=== PATIENT | male | born 1965 | race Caucasian/White ===

== ENCOUNTER 2020-03-05 09:52 | Inpatient (IN) | payer BC, SELFPAY ==
[~2020-03-05] VITALS: Ht 185.4 cm; Wt 99.8 kg
[2020-03-05 09:54] VITALS: Ht 185.4 cm; Wt 99.8 kg
[2020-03-05 11:55] LABS: CREATININE SERUM 1.2 mg/dL (0.7-1.3); GFR1 > 60 mL/min; POTASSIUM SERUM 4.3 mmol/L (3.5-5.1); SODIUM SERUM 129 mmol/L (136-145)
[2020-03-05 12:51] LABS: CALCIUM 9.5 mg/dL (8.5-10.1); CARBON DIOXIDE 28.4 mmol/L (21-32); CHLORIDE SERUM 91 mmol/L (98-107); GLUCOSE SERUM 200 mg/dL (74-106)
[2020-03-05 12:56] LABS: ALKALINE PHOSPHATASE 115 U/L (46-116); ALT/SGPT 131 U/L (16-63); AST/SGOT 114 U/L (15-37); BILIRUBIN TOTAL 0.87 mg/dL (0.20-1.00)
[2020-03-05 13:17] LABS: ALBUMIN 2.5 g/dL (3.4-5.0); LACTIC DEHYDROGENASE (LDH) 833 U/L (100-190); TOTAL PROTEIN, SERUM 8.5 g/dL (6.4-8.2)
[2020-03-05 13:18] LABS: C REACTIVE PROTEIN 41.4 mg/dL (<=0.9)
[2020-03-05 13:30] LABS: RED CELL DISTRIBUTION WIDTH 14.1 % (12.1-16.2)
[2020-03-05 15:33] LABS: PLATELET COUNT 25 x10^3mcL (152-348)
[2020-03-05 15:34] LABS: SEGMENTED NEUTROPHILS 4 % (37-75)
[2020-03-05 15:37] LABS: MONOCYTE 26 % (0-7); rbc morphology (normal/abnorm) NORMAL (NORMAL)
[2020-03-05 16:24] LABS: UA SPECIFIC GRAVITY 1.015 (1.005-1.035); microscopic required? YES; urine erythrocyte TRACE (NEGATIVE)
[2020-03-05] MEDS ORDERED: ATORVASTATIN CA40 M1 PO (17:27)
[2020-03-05] MEDS ORDERED: ZESTRIL20 MG PO (17:28)
[2020-03-06 08:25] VITALS: BP 139/93
[2020-03-06 08:53] VITALS: BP 167/62
[2020-03-06 09:57] LABS: RED CELL DISTRIBUTION WIDTH 14.2 % (12.1-16.2)
[2020-03-06 11:12] LABS: PLATELET COUNT 22 x10^3mcL (152-348)
[2020-03-06 12:43] VITALS: BP 140/88
[2020-03-06 13:04] LABS: ALKALINE PHOSPHATASE 108 U/L (46-116); ALT/SGPT 146 U/L (16-63); AST/SGOT 79 U/L (15-37); BILIRUBIN TOTAL 0.4 mg/dL (0.20-1.00); CALCIUM 8.4 mg/dL (8.5-10.1); CARBON DIOXIDE 21.8 mmol/L (21-32); CHLORIDE SERUM 104 mmol/L (98-107); GFR1 > 60 mL/min; GLUCOSE SERUM 163 mg/dL (74-106); MAGNESIUM 2.5 mg/dL (1.8-2.4); SODIUM SERUM 143 mmol/L (136-145); TOTAL PROTEIN, SERUM 6.3 g/dL (6.4-8.2)
[2020-03-06 13:05] LABS: ALBUMIN 2.2 g/dL (3.4-5.0)
[2020-03-06 14:40] LABS: MONOCYTE 5 % (0-7); SEGMENTED NEUTROPHILS 28 % (37-75); rbc morphology (normal/abnorm) ABNORMAL (NORMAL)
[2020-03-06 17:46] VITALS: BP 126/75
[2020-03-06 21:36] VITALS: BP 121/72
[2020-03-07 06:16] VITALS: BP 115/67
[2020-03-07 08:52] LABS: ALKALINE PHOSPHATASE 94 U/L (46-116); ALT/SGPT 138 U/L (16-63); AST/SGOT 65 U/L (15-37); BILIRUBIN TOTAL 0.45 mg/dL (0.20-1.00); CALCIUM 8.7 mg/dL (8.5-10.1); CARBON DIOXIDE 27.1 mmol/L (21-32); CHLORIDE SERUM 102 mmol/L (98-107); GFR1 > 60 mL/min; GLUCOSE SERUM 103 mg/dL (74-106); MAGNESIUM 2.5 mg/dL (1.8-2.4); POTASSIUM SERUM 4.5 mmol/L (3.5-5.1); SODIUM SERUM 139 mmol/L (136-145); TOTAL PROTEIN, SERUM 6.9 g/dL (6.4-8.2)
[2020-03-07 08:57] LABS: RED CELL DISTRIBUTION WIDTH 13.8 % (12.1-16.2)
[2020-03-07 09:22] LABS: PLATELET COUNT 24 x10^3mcL (152-348)
[2020-03-07 09:40] VITALS: BP 119/69
[2020-03-07 13:17] VITALS: BP 125/67
[2020-03-07 16:03] LABS: BAND NEUTROPHIL 0 % (0-10); BASOPHIL 0 % (0-2); MONOCYTE 5 % (0-7); SEGMENTED NEUTROPHILS 37 % (37-75); rbc morphology (normal/abnorm) ABNORMAL (NORMAL)
[2020-03-07 16:42] VITALS: BP 118/64
[2020-03-07 19:50] VITALS: BP 121/82
[2020-03-08 05:27] VITALS: BP 122/63
[2020-03-08 09:03] VITALS: BP 124/73
[2020-03-08 12:21] VITALS: BP 122/70
[2020-03-08 13:14] LABS: ALKALINE PHOSPHATASE 97 U/L (46-116); ALT/SGPT 130 U/L (16-63); AST/SGOT 46 U/L (15-37); BILIRUBIN TOTAL 0.47 mg/dL (0.20-1.00); CARBON DIOXIDE 23.7 mmol/L (21-32); CHLORIDE SERUM 100 mmol/L (98-107); GFR1 > 60 mL/min; GLUCOSE SERUM 134 mg/dL (74-106); MAGNESIUM 2.4 mg/dL (1.8-2.4); POTASSIUM SERUM 4.2 mmol/L (3.5-5.1); SODIUM SERUM 135 mmol/L (136-145)
[2020-03-08 13:18] LABS: BILIRUBIN DIRECT 0.16 mg/dL (0.0-0.2); BILIRUBIN TOTAL 0.47 mg/dL (0.20-1.00)
[2020-03-08 13:19] LABS: RED CELL DISTRIBUTION WIDTH 13.6 % (12.1-16.2)
[2020-03-08 13:21] LABS: ALBUMIN 2.1 g/dL (3.4-5.0); TOTAL PROTEIN, SERUM 6.1 g/dL (6.4-8.2)
[2020-03-08 14:14] LABS: BAND NEUTROPHIL 5 % (0-10); MONOCYTE 6 % (0-7); SEGMENTED NEUTROPHILS 19 % (37-75)
[2020-03-08 14:15] LABS: rbc morphology (normal/abnorm) ABNORMAL (NORMAL)
[2020-03-08 14:16] LABS: PLATELET MORPHOLOGY LARGE PLATELET SEEN
[2020-03-08 14:17] LABS: PLATELET COUNT 25 x10^3mcL (152-348)
[2020-03-08 16:52] VITALS: BP 118/76
[2020-03-08 21:05] VITALS: BP 120/77
[2020-03-09 06:04] VITALS: BP 128/77
[2020-03-09 07:43] LABS: ALKALINE PHOSPHATASE 94 U/L (46-116); ALT/SGPT 112 U/L (16-63); AST/SGOT 40 U/L (15-37); BILIRUBIN TOTAL 0.6 mg/dL (0.20-1.00); CARBON DIOXIDE 27.3 mmol/L (21-32); CHLORIDE SERUM 97 mmol/L (98-107); CREATININE SERUM 1.1 mg/dL (0.7-1.3); GFR1 > 60 mL/min; GLUCOSE SERUM 106 mg/dL (74-106); MAGNESIUM 2.2 mg/dL (1.8-2.4); POTASSIUM SERUM 3.9 mmol/L (3.5-5.1); SODIUM SERUM 133 mmol/L (136-145); TOTAL PROTEIN, SERUM 7.1 g/dL (6.4-8.2)
[2020-03-09 07:44] LABS: ALBUMIN 2.3 g/dL (3.4-5.0); RED CELL DISTRIBUTION WIDTH 13.6 % (12.1-16.2)
[2020-03-09 07:58] LABS: BILIRUBIN DIRECT 0.2 mg/dL (0.0-0.2); BILIRUBIN TOTAL 0.6 mg/dL (0.20-1.00); TOTAL PROTEIN, SERUM 7.1 g/dL (6.4-8.2)
[2020-03-09 08:12] LABS: PLATELET COUNT 32 x10^3mcL (152-348)
[2020-03-09 08:20] LABS: ALBUMIN 2.3 g/dL (3.4-5.0)
[2020-03-09 09:27] VITALS: BP 138/58
[2020-03-09 13:17] VITALS: BP 120/72
[2020-03-09 13:24] LABS: MONOCYTE 2 % (0-7); SEGMENTED NEUTROPHILS 33 % (37-75)
[2020-03-09 13:27] LABS: rbc morphology (normal/abnorm) NORMAL (NORMAL)
[2020-03-09 13:29] LABS: ATYPICAL LYMPH 0 %
[2020-03-09 16:49] VITALS: BP 115/67
[2020-03-09 21:44] VITALS: BP 133/87
[2020-03-10 05:49] VITALS: BP 125/68
[2020-03-10 08:26] LABS: RED CELL DISTRIBUTION WIDTH 13.5 % (12.1-16.2)
[2020-03-10 08:51] VITALS: BP 125/72
[2020-03-10 09:27] LABS: ALKALINE PHOSPHATASE 93 U/L (46-116); ALT/SGPT 94 U/L (16-63); AST/SGOT 20 U/L (15-37); BILIRUBIN TOTAL 0.69 mg/dL (0.20-1.00); CARBON DIOXIDE 25.5 mmol/L (21-32); CHLORIDE SERUM 98 mmol/L (98-107); CREATININE SERUM 1.1 mg/dL (0.7-1.3); GFR1 > 60 mL/min; GLUCOSE SERUM 105 mg/dL (74-106); MAGNESIUM 2.3 mg/dL (1.8-2.4); POTASSIUM SERUM 4.3 mmol/L (3.5-5.1); SODIUM SERUM 133 mmol/L (136-145); TOTAL PROTEIN, SERUM 7.3 g/dL (6.4-8.2)
[2020-03-10 09:28] LABS: ALBUMIN 2.3 g/dL (3.4-5.0)
[2020-03-10 10:17] LABS: PLATELET COUNT 36 x10^3mcL (152-348)
[2020-03-10 12:29] VITALS: BP 141/73
[2020-03-10 12:54] LABS: BAND NEUTROPHIL 0 % (0-10); BASOPHIL 0 % (0-2); MONOCYTE 2 % (0-7); SEGMENTED NEUTROPHILS 21 % (37-75)
[2020-03-10 12:56] LABS: rbc morphology (normal/abnorm) NORMAL (NORMAL)
[2020-03-10 16:13] VITALS: BP 119/77
[2020-03-10 20:57] VITALS: BP 124/71
[2020-03-11] MEDS ORDERED: DECADRON6 MG PO (01:23)
[2020-03-11 05:45] VITALS: BP 110/74
[2020-03-11 08:12] LABS: BILIRUBIN TOTAL 0.69 mg/dL (0.20-1.00); TOTAL PROTEIN, SERUM 7.2 g/dL (6.4-8.2)
[2020-03-11 08:37] LABS: ALBUMIN 2.3 g/dL (3.4-5.0)
[2020-03-11 09:20] VITALS: BP 114/65
[2020-03-11 09:34] LABS: BILIRUBIN DIRECT 0.17 mg/dL (0.0-0.2)
[2020-03-11 11:49] VITALS: BP 142/80
[2020-03-11 13:49] LABS: RED CELL DISTRIBUTION WIDTH 13.6 % (12.1-16.2)
[2020-03-11 16:22] VITALS: BP 123/57
[2020-03-11 18:27] LABS: CALCIUM 8.1 mg/dL (8.5-10.1); CARBON DIOXIDE 15.7 mmol/L (21-32); CHLORIDE SERUM 79 mmol/L (98-107); CREATININE SERUM 0.9 mg/dL (0.7-1.3); GFR1 > 60 mL/min; GLUCOSE SERUM 81 mg/dL (74-106); POTASSIUM SERUM 3.1 mmol/L (3.5-5.1)
[2020-03-11 18:29] LABS: SODIUM SERUM 111 mmol/L (136-145)
[2020-03-11 21:53] VITALS: BP 135/75
[2020-03-11 21:56] LABS: CALCIUM 8.9 mg/dL (8.5-10.1); CARBON DIOXIDE 21.3 mmol/L (21-32); CHLORIDE SERUM 98 mmol/L (98-107); CREATININE SERUM 1.2 mg/dL (0.7-1.3); GFR1 > 60 mL/min; GLUCOSE SERUM 148 mg/dL (74-106); SODIUM SERUM 134 mmol/L (136-145)
[2020-03-12 05:55] LABS: MONOCYTE 13 % (0-7); SEGMENTED NEUTROPHILS 1 % (37-75)
[2020-03-12 05:56] LABS: rbc morphology (normal/abnorm) NORMAL (NORMAL)
[2020-03-12 06:09] VITALS: BP 119/64
[2020-03-12 06:46] LABS: PLATELET COUNT 39 x10^3mcL (152-348)
[2020-03-12 08:53] VITALS: BP 117/60
[2020-03-12 11:24] VITALS: BP 124/73
[2020-03-12 16:30] VITALS: BP 113/72
[2020-03-12 16:51] VITALS: BP 113/72
== END 2020-03-12 17:45 | disposition home or self-care (01) | DRG 177 ==
LOC: ED 09:52 → DU 16:08 → EDBEDREQ 16:09 → DU 03-06 08:00
PROVIDERS: Emergency Medicine; Internal Medicine Infectious Disease; ADMIT Hospitalist; ATTEND Internal Medicine
PROC: XW033E5 Introduction of Remdesivir Anti-infective into Peripheral Vein, Percutaneous Approach, New Technology Group 5 (ICD-10-PCS; principal; 2020-03-07)
PROC: XW13325 Transfusion of Convalescent Plasma (Nonautologous) into Peripheral Vein, Percutaneous Approach, New Technology Group 5 (ICD-10-PCS; 2020-03-08)
DX: U07.1 COVID-19 (principal); J96.01 Acute respiratory failure with hypoxia; J12.89 Other viral pneumonia; D61.818 Other pancytopenia; E87.2 Acidosis; I10 Essential (primary) hypertension; E78.00 Pure hypercholesterolemia, unspecified; E78.5 Hyperlipidemia, unspecified
CPT/HCPCS: 36600; 82962; 83880; 85378; 87804; G0378; J0456; J0692; J0696; J1100; J1442; J7030; J7050; J7060; U0003

== ENCOUNTER 2020-04-23 20:56 | Inpatient (IN) | payer BC, SELFPAY ==
[~2020-04-23] VITALS: Ht 185.4 cm; Wt 90.7 kg
[~2020-04-23 20:56] MED LIST: ATORVASTATIN CA40 M1 PO; DECADRON6 MG PO; ZESTRIL20 MG PO
[2020-04-23 21:05] VITALS: Ht 185.4 cm; Wt 90.7 kg
--- NOTE | 2020-04-23 21:13 | NUR ---
PT BIB [facility], REPORT RECEIVED FROM ROTARY SWAGING MACHINE OPERATOR MELANI. MEDIC REPORTS THAT PT HAD COVID IN JANUARY AND HOSPITALIZED AT [facility] [place] FOR COVID. MEDIC REPORTS THAT PT WENT TO URGENT CARE YESTERDAY FOR SOB AND THEY ADMINISTERED A STEROID SHOT FOR PT. PT GOT PROGRESSIVELY WORSE AND PRESENTS TO THE ED FOR THIS REASON. MEDIC REPORTS PT HX HTN, HIGH CHOLESTEROL, 12 LEAD NSR, AND PT HAS 2L O2 AT HOME PRN AND AT NIGHT. PT IN GURNEY SHORT OF BREATH, CAME TO ED WITH NC AND PUT ON NRB 15L ON ARRIVAL. PT SATURATION 100%--TAKEN OFF NRB. PT AAOX4, SPEAKING IN FULL CLEAR SENTENCES BUT IS IN OBVIOUS DISTRESS/SOB. RT AT BEDSIDE TO DRAW ABG. PT GURNEY IN LOWEST POSITION AND SIDE RAILSX2 FOR SAFETY
--- NOTE | 2020-04-23 21:19 | NUR ---
XRAY AND LAB AT BEDSIDE
--- NOTE | 2020-04-23 21:42 | NUR ---
PT IN [facility] IN OBVIOUS DISTRESS, PALE, DIAPHORETIC AND ASKING FOR WATER--OK'D BY
--- NOTE | 2020-04-23 21:47 | NUR ---
RT AT BEDSIDE FOR ABG DRAW
[2020-04-23 22:04] LABS: ALKALINE PHOSPHATASE 98 U/L (46-116); ALT/SGPT 32 U/L (16-63); AST/SGOT 51 U/L (15-37); BILIRUBIN TOTAL 0.7 mg/dL (0.20-1.00); CALCIUM 8.9 mg/dL (8.5-10.1); CARBON DIOXIDE 12.5 mmol/L (21-32); CHLORIDE SERUM 99 mmol/L (98-107); GLUCOSE SERUM 171 mg/dL (74-106); SODIUM SERUM 138 mmol/L (136-145); TOTAL PROTEIN, SERUM 6.8 g/dL (6.4-8.2)
[2020-04-23 22:11] LABS: GFR1 15 mL/min; LACTIC DEHYDROGENASE (LDH) 1891 U/L (100-190)
[2020-04-23 22:12] LABS: CREATININE SERUM 4.5 mg/dL (0.7-1.3)
[2020-04-23 22:15] LABS: C REACTIVE PROTEIN 39.6 mg/dL (<=0.9)
[2020-04-23 22:16] LABS: PLATELET COUNT 53 x10^3mcL (152-348); RED CELL DISTRIBUTION WIDTH 28.4 % (12.1-16.2)
--- NOTE | 2020-04-23 22:20 | NUR ---
CALLED BY [facility] AND MADE AWARE THE CRITICAL LAB RESULT TROPONIN WAS NOT FOR THIS PATIENT AND THAT THEY WILL CANCEL IT. MD CANCINO AND PRIMARY RN VANITA MADE AWARE.
--- NOTE | 2020-04-23 22:44 | NUR ---
PT IN [facility] IN DISTRESS, SOB, PULLED OUT WITH PREVIOUS IV. PLACED 20G L FA IV
--- NOTE | 2020-04-23 22:47 | NUR ---
PT TO CT VIA [facility]
[2020-04-23 22:48] LABS: BAND NEUTROPHIL 0 % (0-10); BASOPHIL 0 % (0-2); BLAST 80 % (0)
[2020-04-23 22:49] LABS: rbc morphology (normal/abnorm) ABNORMAL (NORMAL)
[2020-04-23 22:52] LABS: ovalocyte/elliptocyte 1+
[2020-04-23 22:58] LABS: PATH REVIEW for HEMA YES
--- NOTE | 2020-04-23 23:00 | NUR ---
PT IN [facility] IN CLEAR RESPIRATORY DISTRESS, PALE, AND DIAPHORETIC. PT ON 15L NRB, STATING THAT PT MUST BE ON OXYGEN FROM PT HGB BEING SO LOW. PT SATTING 100% O2. PT SITTING UP HIGH FOWLERS AND EDUCATED PT THAT HE MUST SIT UP TO HELP BREATHING AND DECREASE WOB. PT EXPRESSED UNDERSTANDING. PT IN [facility] IN LOWEST POSITION AND SIDE RAILSX2 FOR SAFETY
--- NOTE | 2020-04-23 23:44 | NUR ---
PT UNCHANGED STATUS. BEGAN ZITHROMAX INFUSION, PT TOLERATING WELL. PT IN GURNEY AT LOWEST POSITION AND SIDE RAILSX2 FOR SAFETY
--- NOTE | 2020-04-24 00:03 | NUR ---
PT TOLERATED NIKOLE AND COVID PCR SWAB WELL--ORDERED BY DR CANCINO. PT IN GURNEY, TACHYPNEIC, INFUSIONS RUNNING WELL.
--- NOTE | 2020-04-24 00:13 | NUR ---
SPOKE WITH DR ASTORGA [facility] ABOUT PT. DR ASTORGA STS THAT HE WOULD LIKE BIPAP PRN AND TO START BLOOD ASHLY.
--- NOTE | 2020-04-24 00:24 | NUR ---
RT AT BEDSIDE FOR BIPAP PLACEMENT
--- NOTE | 2020-04-24 00:26 | NUR ---
PT IN RESPIRATORY DISTRESS ON NONREBREATHER MASK AT 15 L/M. PLACED ON BIPAP 02/17 RATE 18 FIO2 100%. PT HAS A VERY AUDIBLE GURGLING NOISE ON INSPIRATORY BREATHS. HR 107 SPO2 99. WILL CONTINUE TO MONITOR.
--- NOTE | 2020-04-24 00:45 | NUR ---
TALKED TO DR ASTORGA ABOUT PT POTASSIUM LEVEL AT 6.0. DR ASTORGA CONSULTING WITH DR LOMBARDI ABOUT POC REGARDING PT HYPERKALEMIA. WILL MEDICATE ORDERED
--- NOTE | 2020-04-24 00:57 | NUR ---
PT SEATED HIGH FOWLERS ON BIPAP. PT CONTINUING TO BE REMINDING THAT HE MUST KEEP BIPAP ON BECAUSE PT KEEPS WANTING TO TAKE BIPAP OFF. RT AT BEDSIDE FOR CONSULT AND MONITORING PT TOLERANCE OF BIPAP
--- NOTE | 2020-04-24 01:24 | NUR ---
DR LMOBARDI ON PHONE WITH DR FAGAN TO CONSULT ON PT
--- NOTE | 2020-04-24 02:03 | NUR ---
BLOOD TRANSFUSION INITIATED, PT TOLERATING WELL--DENIES ANY ADVERSE EFFECTS. PT CONTINUES TO BE ON BIPAP
--- NOTE | 2020-04-24 02:20 | NUR ---
R HAND IV NOTED TO BE INFILTRATED. ONLY NS WAS RUNNING IN THIS IV. IS AWARE. RECOMMENDS TO ELEVATE PT'S ARM AND THAT INFILTRATION WILL RESOLVE. FOLLOWED 'S RECOMMENDATION
--- NOTE | 2020-04-24 02:24 | NUR ---
SPOKE TO DR FAGAN ABOUT PT POC. DR FAGAN WOULD LIKE TO START A CENTRAL LINE AND REQUESTS DR LOMBARDI TO PLACE CENTRAL LINE. PEDRO PABLO JADE AT BEDSIDE ATTEMPTING NEW IV ACCESS AT THIS TIME. DR FAGAN WOULD ALSO LIKE TO START PT ON PRECEDEX FOR COMFORT.
[2020-04-24 02:37] VITALS: BP 107/62
--- NOTE | 2020-04-24 02:58 | NUR ---
TRANSFERED PT ON BIPAP FROM BED 8 TO BED 1 WITH NO INCIDENT.
--- NOTE | 2020-04-24 03:01 | NUR ---
PT TO ROOM 1 WITH SANDI MENDIOLA AND BRADLEY SWENSON. PT ON FULL MONITORS AND RT AT BEDSIDE AWAITING CENTRAL LINE PLACEMENT BY DR LOMBARDI
--- NOTE | 2020-04-24 03:12 | NUR ---
PT IN CLEAR RESPIRATORY DISTRESS--PT BECOMING MORE COMPLIANT WITH BIPAP. WILL BEGIN LASIX IVP ONCE PT BOLUS HAS FINISHED INFUSING. PT IS TOLERATING BLOOD TRANSFUSION WELL--NO S/S OF ADVERSE EFFECTS FROM BLOOD. PT IN GURNEY SEATED HIGH FOWLERS TO HELP WITH BREATHING, GURNEY IN LOWEST POSITION AND SIDE RAILSX2 FOR SAFETY
--- NOTE | 2020-04-24 03:25 | NUR ---
DR LOMBARDI AT BEDSIDE FOR CENTRAL LINE PLACEMENT
--- NOTE | 2020-04-24 03:55 | NUR ---
DR LOMBARDI COMPLETED CENTRAL LINE--PENDING XRAY FOR PLACEMENT CONFIRMATION
--- NOTE | 2020-04-24 04:01 | NUR ---
XRAY AT BEDSIDE
--- NOTE | 2020-04-24 04:07 | NUR ---
X RAY COMPLETED--PENDING PLACEMENT CONFIRMATION
--- NOTE | 2020-04-24 04:30 | NUR ---
WILLIAM JADE TAKING OVER PRIMARY CARE OF PT AT THIS TIME.
--- NOTE | 2020-04-24 04:45 | NUR ---
PT NOTED WITH DECREASE RESPONSE WITH VERBAL AND TACTILE STIMULI, MD LOMBARDI AWARE. WILL PREP PT FOR INTUBATION AT THIS TIME.
--- NOTE | 2020-04-24 04:51 | NUR ---
MD LOMBARDI AT BEDSIDE FOR INTUBATION, RT RAMIRO MAYO RN AND MYSELF.
--- NOTE | 2020-04-24 04:52 | NUR ---
PT ON FULL CM, AND ON PADS, RT PRESENT AT THIS TIME.
[2020-04-24 04:54] LABS: BILIRUBIN TOTAL 0.6 mg/dL (0.20-1.00); CALCIUM 7.9 mg/dL (8.5-10.1); CARBON DIOXIDE 13.2 mmol/L (21-32); MAGNESIUM 2.8 mg/dL (1.8-2.4)
--- NOTE | 2020-04-24 04:56 | NUR ---
MEDICATED PRIOR TO INTUBATION, SEE EMAR FOR DETAILS.
[2020-04-24 04:57] VITALS: BP 94/40
--- NOTE | 2020-04-24 04:57 | NUR ---
INTUBATED PT BY MD LOMBARDI AT HTIS TIME, + COLOR CHANGE NOTED. 22CM @ LIP. PT REMAINS SEDATED AT HTIS TIME.
[2020-04-24 04:58] LABS: ALBUMIN 2.2 g/dL (3.4-5.0); TOTAL PROTEIN, SERUM 5.8 g/dL (6.4-8.2)
[2020-04-24 04:59] LABS: POTASSIUM SERUM 6.3 mmol/L (3.5-5.1)
[2020-04-24 05:00] LABS: CREATININE SERUM 5.3 mg/dL (0.7-1.3)
--- NOTE | 2020-04-24 05:00 | NUR ---
RESUMING PRIMARY CARE OF PT AT THIS TIME, RECEIVED REPORT FROM WILLIAM JADE, OBSERVED THAT PT HAS BEEN INTUBATED
--- NOTE | 2020-04-24 05:10 | NUR ---
INITIATED LEVOPHED AT 2MCG/MIN
--- NOTE | 2020-04-24 05:11 | NUR ---
INCREASED LEVOPHED TO 4MCG/MIN
--- NOTE | 2020-04-24 05:20 | NUR ---
INCREASED RESPIRATORY RATE ON VENTILATOR FROM 18 TO 26.
[2020-04-24 05:31] LABS: RED CELL DISTRIBUTION WIDTH 26.7 % (12.1-16.2)
--- NOTE | 2020-04-24 05:33 | NUR ---
0519- FAINT PULSE 0519- 1ST EPI 0519- COMPRESSIONS INITIATED 0521- 2ND EPI 0521- PULSE CHECK 0522- CACL IVP 0532- D50W IVP 0524- PULSE CHECK- PULSE 0525- 6U INSULIN IVP 0525- NEW LITER NS IN PRESSURE BAG.
--- NOTE | 2020-04-24 05:34 | NUR ---
PER DR FAGAN ORDER- INCREASE LEVOPHED TO 24MCG/MIN @ 0526 FROM 4MCG/MIN. 0527 BP- 127/68 (90) 0531 BP- 132/71 (85) 0536 BP- 99/60 (73) PER DR FAGAN, RESP RATE IS INCREASED TO 26 RESP/MIN
--- NOTE | 2020-04-24 05:50 | NUR ---
OG INSERTED. XRAY TAKEN TO VERIFY PLACEMENT. SOUND HEARD WITH AUSCULTATION W/ AIR SYRINGE
--- NOTE | 2020-04-24 05:53 | NUR ---
LEVO AT 26 MCG/MIN D/T BP 85/36 (55)
--- NOTE | 2020-04-24 06:00 | NUR ---
PER DR FAGAN, INCREASED RESP. RATE TO 30 RESPIRATIONS/MIN, TIDAL VOLUME 600--POST ABG RESULTS
--- NOTE | 2020-04-24 06:00 | NUR ---
INCREASED RESPIRATORY RATE TO 30 FROM 26 AND TIDAL VOLUME TO 600 FROM 500 PER REQUEST POST ABG RESULTS.
[2020-04-24 06:21] LABS: UA SPECIFIC GRAVITY 1.025 (1.005-1.035); microscopic required? YES; urine erythrocyte 2+ (NEGATIVE)
--- NOTE | 2020-04-24 06:21 | NUR ---
SEE VITAL SIGNS FOR TITRATION OF LEVO AND VASOPRESSIN. BP 84/12 (58), WILL TITRATE UP VASOPRESSIN AT 0630.
--- NOTE | 2020-04-24 06:33 | NUR ---
INCREASED VASOPRESSIN TO 0.03U/MIN PER BP 86/36 (57)
--- NOTE | 2020-04-24 06:35 | NUR ---
WILL INCREASE VASOPRESSIN TO MAX OF 0.04U/MIN AT 0645 IF PT BP DOES NOT ELEVATE TO PARAMETERS SET IN EMAR
[2020-04-24 06:38] LABS: BLAST 85 % (0); PATH REVIEW for HEMA YES
--- NOTE | 2020-04-24 06:38 | NUR ---
O2 SATURATION FINALLY REGISTERING AT 100%
[2020-04-24 06:40] LABS: ovalocyte/elliptocyte 1+; rbc morphology (normal/abnorm) ABNORMAL (NORMAL)
[2020-04-24 06:44] LABS: PLATELET COUNT 42 x10^3mcL (152-348)
--- NOTE | 2020-04-24 06:48 | NUR ---
INCREASED VASOPRESSIN TO MAX OF 0.04U/MIN PER PT BP 75/27 (43)
--- NOTE | 2020-04-24 07:01 | NUR ---
RADIOLOGY CALLED NOTIFYING THAT PT ET TUBE MUST BE ADVANCED 3CM. CALLED RT AND NOTIFIED. RT EN ROUTE
--- NOTE | 2020-04-24 07:05 | NUR ---
ATTEMPTING TO INITIATE EPI DRIP ORDERED PER PT LOW BP. MD HAS NOT INPUTTED PARAMETERS FOR EPI--UNABLE TO BEGIN EPI DRIP. PAGED MD, AWAITING MD CALL FOR PARAMETERS
[2020-04-24 07:14] VITALS: BP 82/30
--- NOTE | 2020-04-24 07:21 | NUR ---
RT AT BEDSIDE TO ADVANCE ET TUBE. ET TUBE WAS AT 22, NOW AT 25.
--- NOTE | 2020-04-24 07:30 | NUR ---
SPOKE WITH DR ZHAO, DR ZHAO STS THAT HE WOULD LIKE THE PARAMETER OF MAP>60.
--- NOTE | 2020-04-24 07:34 | NUR ---
REPORT RECEIVED FROM VANITA JADE. ASSUMING PRIMARY CARE OF PT AT THIS TIME. pT CURRENTLY ON MULTIPLE DRIPS AND CURRENTLY UNSTABLE. pT IS INTUBATED AND SEDATED AT THIS TIME. PT BP IS COMPRIMISED AT 60/32.
--- NOTE | 2020-04-24 07:56 | NUR ---
CODE CALLED, PT LOST PULSES. SEE CODE BLUE SHEET.
--- NOTE | 2020-04-24 08:24 | NUR ---
PT CURRENTLY BEING GIVEN EPI DRIP AT THISTIME. PT WAS PLACED ON THE CO2 MONITOR WITH A READING OF INITIALLY 20 THAT CONTINUES TO DROP TO 14. lOSS OF PULSE AT THIS TIME.
--- NOTE | 2020-04-24 08:27 | NUR ---
CODE CALLED, END-TIDAL CO2 DROPOPED TO 17 THEN 14.
--- NOTE | 2020-04-24 08:37 | NUR ---
BGL 186
--- NOTE | 2020-04-24 08:38 | NUR ---
pPT PLACED ON TRENDELENBERG. PT IS CURRENTLY MAXED ON LEVOPHED, VASOPRESSIN, AND EPI DRIP. PT BP CONTINUES TO DROP. CO2 CONTINUES TO DROP. PT BP CONTINUES TO DROP, FAMILY WAS CALLED AT THIS TIME. ER TEAM AT BEDSIDE, MONITORING FOR POTENTIAL CODE BLUE.
--- NOTE | 2020-04-24 08:45 | NUR ---
PT CURRENTLY WITH A PULSE AT 92. PT ON THE VENT AT 30/18:1/600/10 WITH A CO2 OF 17 AND PULSE OX OF 96%. PT BP CONTINUES TO DETERIOTE WITH A BP OF 78/43, PT CURRENTL ON LEVOPHED, VASOPRESSIN, AND EPI, MAXED OUT. fAMILY EN ROUTE TO DETERMINE CODE STATUS AND DISCUSS THEIR WISHES WITH THE DOCTOR.
--- NOTE | 2020-04-24 09:15 | NUR ---
[employer] HAVE BEEN CALLED AND STARTED ON RECEIVING. BLOOD BANK REPORTED THAT THEY ATTEMPTED TO SEND EARLIER TODAY, BUT WAS TOLD THAT PT "WAS IN A CODE" NO FOLLOWUP WAS COMPLETED AFTER RESUSCITATION. AT THIS TIME THE ORDER WAS RECOGNIZED BY MYSELF AND ASKED GEORGIE ALVAREZ RN TO ASSIST ME IN GETTING THE BLOOD.
--- NOTE | 2020-04-24 09:16 | NUR ---
FAMILY AT BEDSIDE AT THIS TIME.
--- NOTE | 2020-04-24 09:17 | NUR ---
PROVIDER MICHAEL TALKED TO THE FAMILY AT THIS TIME, AND EXPLAINED THE PROBLEM AND THE PLAN OF CARE. PT AGREES AND HAS ASKED THAT THE PT REMAIN A FULL CODE. BP IS STABLE AT THIS TIME, WITH DRIPS. DR. GOFF AT BEDSIDE AT THIS TIME.
--- NOTE | 2020-04-24 09:30 | NUR ---
PT BLOOD TRANSFUSION STARTED AT THIS TIME.
--- NOTE | 2020-04-24 09:51 | NUR ---
pT EXPERIENCED CODE BLUE AT 0756, 0856, 0940. SEE DOWNTIME CHART.
--- NOTE | 2020-04-24 10:10 | NUR ---
PT FAMILY ARRIVED AT THIS TIME. pT PROVIDED PRIVACY AND COMFORT AT THIS TIME.
[2020-04-24 10:15] VITALS: BP 91/10
--- NOTE | 2020-04-24 10:30 | NUR ---
FAMILY WAS GIVEN PERSONAL BELONGINGS AT THIS TIME. FAMILY REQUESTED FOR RING TO BE CUT OFF. rING WAS CUT ON THE BASE AND GIVEN TO FAMILY.
--- NOTE | 2020-04-24 10:40 | NUR ---
PT CODE BLUE AT THIS TIME.. SEE DOWNTIME SHEET.
--- NOTE | 2020-04-24 10:44 | NUR ---
PT FAMILY AT BEDSIDE, WHILE CODE BLUE WAS UNDERWAY. FAMILY WAS OBSERVING THE CODE AND TOLD THE DOCTOR THAT THEY NO LONGER WANT TO CONTINUE THE CODE. PROVIDER WAS AT BEDSIDE WITH FAMILY, AND CALLED FOR RESUSCITATION EFFORTS TO STOP. SEE NOTES.
--- NOTE | 2020-04-24 10:45 | NUR ---
PT TRANSFUSION ENDED, DUE TO EXPIRATION. SEE DOWNTIME FORMS.
--- NOTE | 2020-04-24 10:45 | NUR ---
TIME OF CALLED BY DR. RODRIGUEZ AT THIS TIME. SEE DOWNTIME CHART.
--- NOTE | 2020-04-24 10:55 | NUR ---
NOTIFIED [facility], SPOKE W/ CHERI. PT IS NOT A CANDIDATE. CASE #[id number]
--- NOTE | 2020-04-24 11:02 | NUR ---
CALLED [facility], SPOKE W/ AISHWARYA. SHE WILL PAGE A DEPUTY TO CALL BACK.
--- NOTE | 2020-04-24 11:13 | NUR ---
WAITING FOR CALL FROM [facility]ONERS OFFICE AT THIS TIME. PT IS REMAINING AT BEDSIDE AT THIS TIME.
--- NOTE | 2020-04-24 11:46 | NUR ---
WAITING FOR CALL FROM [facility]ONERS OFFICE AT THIS TIME.
== END 2020-04-24 13:20 | DRG 871 ==
LOC: ED 20:56 → IC 23:09 → EDBEDREQ 23:21 → IC 04-24 13:20
PROVIDERS: Specialist; ADMIT Hospitalist; ATTEND Internal Medicine Pulmonary Disease
PROC: 02HV33Z Insertion of Infusion Device into Superior Vena Cava, Percutaneous Approach (ICD-10-PCS; principal; 2020-04-24)
PROC: B548ZZA Ultrasonography of Superior Vena Cava, Guidance (ICD-10-PCS; 2020-04-24)
PROC: 30233N1 Transfusion of Nonautologous Red Blood Cells into Peripheral Vein, Percutaneous Approach (ICD-10-PCS; 2020-04-24)
PROC: 5A12012 Performance of Cardiac Output, Single, Manual (ICD-10-PCS; 2020-04-24)
DX: A41.9 Sepsis, unspecified organism (principal); R65.21 Severe sepsis with septic shock; J18.9 Pneumonia, unspecified organism; N17.9 Acute kidney failure, unspecified; I10 Essential (primary) hypertension; E78.00 Pure hypercholesterolemia, unspecified; D64.9 Anemia, unspecified; D69.6 Thrombocytopenia, unspecified; E78.5 Hyperlipidemia, unspecified; E87.5 Hyperkalemia; I46.9 Cardiac arrest, cause unspecified; E66.9 Obesity, unspecified; Z71.3 Dietary counseling and surveillance; Z86.16 Personal history of COVID-19; F10.10 Alcohol abuse, uncomplicated; Y90.9 Presence of alcohol in blood, level not specified; Z66 Do not resuscitate; Z68.26 Body mass index [BMI] 26.0-26.9, adult
CPT/HCPCS: 36600; 83880; 85060; 85378; 87804; G0378; J0171; J0456; J0696; J1815; J2543; J2704; J3490; J7030; J7040; J7050; P9016; P9045; U0003